=== PATIENT | female | born 1955 | race Caucasian/White ===

== ENCOUNTER 2016-10-18 08:28 | Day surgery (SDC) | payer OTHER ==
[2016-10-18] MEDS ORDERED: Lactated Ringer's 500 ML IV ONE (09:14)
[2016-10-18] MEDS ORDERED: Propofol 10 mg/ml Inj (20 ML) ONE (10:47)
[2016-10-20 15:29] VITALS: BP 96/60; PULSE 59; RESP 19; TEMP 97; O2SAT 0
== END 2016-10-18 12:39 | disposition home or self-care (01) ==
LOC: H.ENDO 08:28
PROVIDERS: ATTEND Internal Medicine Gastroenterology
DX: Z12.11 Encounter for screening for malignant neoplasm of colon (principal); K63.5 Polyp of colon; K64.8 Other hemorrhoids